=== PATIENT | male | born 1970 | race Caucasian/White ===

== ENCOUNTER 2018-08-05 07:25 | Emergency (ER) | payer OTHER ==
[2018-08-05] MEDS: ACETAMINOPHEN 500 MG TAB PO (07:59)
[2018-08-05] MEDS: IBUPROFEN 800 MG TAB PO (07:59)
== END 2018-08-05 08:39 | disposition home or self-care (01) ==
LOC: FTE 07:25
DX: J02.9 Acute pharyngitis, unspecified (principal); R05 Cough
CPT/HCPCS: 71045; 87400; 99284-25